=== PATIENT | female | born 1965 | race Caucasian/White ===

== ENCOUNTER → 2020-06-23 | Day surgery (SDC) | payer BC ==
[~2020-06-23] MED LIST: ALLOPURINOL100 MG PO; ATORVASTATIN CA20 MG PO; CETIRIZINE HCL10 M1 PO; MONTELUKAST SOD10 MG PO; PROPOFOL IV EMULSION 10 MG/ML 20 ML VIAL ONE; SERTRALINE HCL50 MG PO; SYMBICORT 16010.2 GM INH; VICTOZA 2-0.6 MG/0.1 SQ
[2020-06-23 09:25] VITALS: BP 110/68
== END | disposition home or self-care (01) ==
LOC: OR 06:01
PROVIDERS: ATTEND Internal Medicine Gastroenterology
DX: Z12.11 Encounter for screening for malignant neoplasm of colon (principal); K29.70 Gastritis, unspecified, without bleeding; K21.00 Gastro-esophageal reflux disease with esophagitis, without bleeding; K44.9 Diaphragmatic hernia without obstruction or gangrene; Z71.3 Dietary counseling and surveillance; E66.01 Morbid (severe) obesity due to excess calories; E11.22 Type 2 diabetes mellitus with diabetic chronic kidney disease; N18.9 Chronic kidney disease, unspecified; J45.909 Unspecified asthma, uncomplicated; M10.9 Gout, unspecified; F32.9 Major depressive disorder, single episode, unspecified; F41.9 Anxiety disorder, unspecified; Z88.2 Allergy status to sulfonamides; Z88.8 Allergy status to other drugs, medicaments and biological substances; Z01.810 Encounter for preprocedural cardiovascular examination; Z01.812 Encounter for preprocedural laboratory examination; Z20.822 Contact with and (suspected) exposure to COVID-19; Z68.41 Body mass index [BMI] 40.0-44.9, adult; Z87.891 Personal history of nicotine dependence
CPT/HCPCS: 36415; 43239; 45378; 81025; 82948; 93005; J2704; U0002

== ENCOUNTER 2020-07-07 18:19 | Emergency (ER) | payer BC ==
[~2020-07-07] VITALS: Ht 157.5 cm; Wt 120.2 kg
[~2020-07-07 18:19] MED LIST changes: -PROPOFOL IV EMULSION 10 MG/ML 20 ML VIAL ONE
[2020-07-07] MEDS ORDERED: SODIUM CHLORIDE 0.9% 1000ML 1,000 ML IV STA (18:50)
[2020-07-07] MEDS ORDERED: METOCLOPRAMIDE HCL 10 MG/2ML VIAL IV NR (19:00)
[2020-07-07] MEDS ORDERED: METHYLPREDNISOLONE SOD SUCC 125 MG/2ML VIAL IV ONE (19:00)
[2020-07-07] MEDS ORDERED: SODIUM CHLORIDE 0.9% 1000ML 1,000 ML ONE (19:04)
[2020-07-07] MEDS ORDERED: METHYLPREDNISOLONE SOD SUCC 125 MG/2ML VIAL ONE (19:04)
[2020-07-07] MEDS ORDERED: METOCLOPRAMIDE HCL 10 MG/2ML VIAL ONE (19:04)
[2020-07-07] MEDS ORDERED: ACETAMINOPHEN 325 MG TAB PO NR (19:15)
[2020-07-07] MEDS ORDERED: PREDNISONE 20 MG TAB PO NR (19:15)
[2020-07-07] MEDS ORDERED: METOCLOPRAMIDE HCL 10 MG/2ML VIAL IM NR (19:15)
[2020-07-07] MEDS ORDERED: ACETAMINOPHEN 325 MG TAB ONE (19:30)
[2020-07-07] MEDS ORDERED: MORPHINE SULFATE INJ 4 MG/ML INJ 1ML IM NR (20:00)
[2020-07-07] MEDS ORDERED: ONDANSETRON HCL 4 MG ORAL DISINTEGRATING TAB PO NR (20:00)
[2020-07-07] MEDS ORDERED: METHYLPREDNISOLONE SOD SUCC 125 MG/2ML VIAL IM STA (20:02)
[2020-07-07] MEDS ORDERED: FIORICET-COD 51 EACH PO (20:31)
[2020-07-07] MEDS ORDERED: MORPHINE SULFATE INJ 4 MG/ML INJ 1ML ONE (20:32)
[2020-07-07 20:53] VITALS: BP 162/83
== END 2020-07-07 20:53 | disposition home or self-care (01) ==
LOC: FSED 18:40
DX: G43.909 Migraine, unspecified, not intractable, without status migrainosus (principal)
CPT/HCPCS: 70450; 99283; J2270; J2765; J2930; J7030

== ENCOUNTER 2021-01-22 12:15 | Observation (INO) | payer BC ==
[~2021-01-22] VITALS: Ht 157.5 cm; Wt 119.7 kg
[~2021-01-22 12:15] MED LIST changes: +FIORICET-COD 51 EACH PO
[2021-01-22] MEDS ORDERED: FAMOTIDINE 20 MG/2 ML VIAL IV ONE ×2 (12:30→12:55)
[2021-01-22] MEDS ORDERED: ACETAMINOPHEN 325 MG TAB PO ONE (12:30)
[2021-01-22] MEDS ORDERED: NITROGLYCERIN 2% OINT 1 GM PKT TOP ONE (12:30)
[2021-01-22] MEDS ORDERED: PROTONIX20 MG PO (12:44)
[2021-01-22] MEDS ORDERED: ASPIRIN 81 MG CHEW TAB PO ONE (12:45)
[2021-01-22] MEDS: ONDANSETRON HCL INJ 2MG/ML 2ML 2 MG/ML VIAL IV PRN ×4 (12:50→19:00)
[2021-01-22] MEDS ORDERED: ONDANSETRON HCL INJ 2MG/ML 2ML 2 MG/ML VIAL ONE ×2 (12:54→15:30)
[2021-01-22] MEDS ORDERED: ACETAMINOPHEN 325 MG TAB ONE (12:54)
[2021-01-22] MEDS ORDERED: NITROGLYCERIN 2% OINT 1 GM PKT ONE (12:54)
[2021-01-22] MEDS ORDERED: SODIUM CHLORIDE 0.9% 1000ML 1,000 ML ONE (12:55)
[2021-01-22] MEDS ORDERED: KETOROLAC TROMETHAMINE 30 MG/ML VIAL ONE ×2 (12:55→15:30)
[2021-01-22] MEDS ORDERED: ASPIRIN 81 MG CHEW TAB ONE (12:57)
[2021-01-22] MEDS: FAMOTIDINE 20 MG TAB PO SCH ×2 (14:30→20:47)
[2021-01-22] MEDS ORDERED: ACETAMINOPHEN 325 MG TAB PO PRN (14:45)
[2021-01-22] MEDS ORDERED: HYDRALAZINE HCL 20 MG/ML VIAL IV PRN (14:45)
[2021-01-22] MEDS ORDERED: DIPHENHYDRAMINE HCL 25 MG CAP PO PRN (15:30)
[2021-01-22] MEDS ORDERED: KETOROLAC TROMETHAMINE 30 MG/ML VIAL IV STA (15:46)
[2021-01-22 17:29] VITALS: BP 128/88
[2021-01-22] MEDS ORDERED: DEXTROSE 50% SYRINGE 50 ML IV PRN (17:30)
[2021-01-22] MEDS ORDERED: TRAMADOL HCL 50 MG TAB PO PRN (17:45)
[2021-01-22 19:38] LABS: CREATINE KINASE 152 IU/L (29-168)
[2021-01-22 20:00] VITALS: BP 140/91
[2021-01-22] MEDS: INSULIN REGULAR, HUMAN 100 UNIT/1 ML SQ SCH (20:48)
[2021-01-22] MEDS ORDERED: ALLOPURINOL 100 MG TAB PO SCH (21:00)
[2021-01-22] MEDS ORDERED: ZOLPIDEM TARTRATE 10 MG TAB PO PRN (21:00)
[2021-01-22] MEDS ORDERED: SERTRALINE HCL 50 MG TAB PO SCH (21:00)
[2021-01-22] MEDS ORDERED: MONTELUKAST SODIUM 10 MG TAB PO SCH (21:00)
[2021-01-22] MEDS ORDERED: PANTOPRAZOLE SOD 40 MG TABEC PO SCH (21:00)
[2021-01-22] MEDS ORDERED: SIMVASTATIN 40 MG TAB PO SCH (21:00)
[2021-01-22] MEDS ORDERED: LORATADINE 10 MG TAB PO SCH (21:00)
[2021-01-22 23:07] VITALS: BP 140/91
[2021-01-23 00:03] VITALS: BP 141/93
[2021-01-23] MEDS: BUDESONIDE/FORMOTEROL 160/4.5MCG INHALER INH SCH ×2 (00:14→07:00)
[2021-01-23] MEDS: ONDANSETRON HCL INJ 2MG/ML 2ML 2 MG/ML VIAL IV PRN (03:43)
[2021-01-23] MEDS ORDERED: LOPERAMIDE HCL 2 MG CAP PO PRN (03:45)
[2021-01-23 04:00] VITALS: BP 131/92
[2021-01-23 06:31] LABS: ANION GAP 15.1 mmol/L (8-16); CALCIUM 8.4 mg/dL (8.4-10.2); CREATININE, SERUM 1.89 mg/dL (0.57-1.11); POTASSIUM 5.1 mmol/L (3.5-5.1)
[2021-01-23 06:33] LABS: CHOL/HDL RATIO 4.5 (3.0-3.6)
[2021-01-23 06:54] LABS: CREATINE KINASE 128 IU/L (29-168)
[2021-01-23] MEDS: INSULIN REGULAR, HUMAN 100 UNIT/1 ML SQ SCH ×2 (07:30→11:30)
[2021-01-23 07:54] VITALS: BP 157/74
[2021-01-23 07:56] VITALS: BP 157/74
[2021-01-23 08:02] VITALS: BP 157/74
[2021-01-23] MEDS ORDERED: ASPIRIN 81 MG ENTERIC COATED PO SCH (09:00)
[2021-01-23] MEDS: FAMOTIDINE 20 MG TAB PO SCH (09:11)
[2021-01-23 11:24] VITALS: BP 122/59
== END 2021-01-23 14:32 | disposition home or self-care (01) ==
LOC: FSED 12:24 → ERHOLD 13:36 → MED/SURG 17:45
PROVIDERS: ADMIT Internal Medicine; ATTEND Internal Medicine
DX: R07.9 Chest pain, unspecified (principal); E11.9 Type 2 diabetes mellitus without complications; F32.A Depression, unspecified; F41.9 Anxiety disorder, unspecified; E78.00 Pure hypercholesterolemia, unspecified; E66.01 Morbid (severe) obesity due to excess calories; Z68.42 Body mass index [BMI] 45.0-49.9, adult; M10.9 Gout, unspecified; Z88.2 Allergy status to sulfonamides; E11.22 Type 2 diabetes mellitus with diabetic chronic kidney disease; I12.9 Hypertensive chronic kidney disease with stage 1 through stage 4 chronic kidney disease, or unspecified chronic kidney disease; N18.9 Chronic kidney disease, unspecified; Z20.822 Contact with and (suspected) exposure to COVID-19; K52.9 Noninfective gastroenteritis and colitis, unspecified
CPT/HCPCS: 36415 ×2; 71046; 80048; 80053; 80061; 81003; 82550 ×2; 82553 ×2; 82948 ×2; 83036; 83880; 84443; 84484 ×2; 85025; 85379; 93005; 96372; 96374; 96375; 96376; 99284; G0378 ×2; J1885; J2405 ×2; J7030; S0164; U0002

== ENCOUNTER 2022-11-29 22:55 | Emergency (ER) | payer BC, OTHER ==
[~2022-11-29] VITALS: Ht 157.5 cm; Wt 114.8 kg
[~2022-11-29 22:55] MED LIST changes: +MUCINEX DM ER1 EAC1 PO; +PROTONIX20 MG PO
[2022-11-30] MEDS ORDERED: LACTULOSE20 GM/30 M PO (00:08)
[2022-11-30] MEDS ORDERED: ANUSOL-HC25 MG RC (00:09)
[2022-11-30] MEDS ORDERED: LACTULOSE SYRUP 20 GM/30 ML UDC PO ONE (00:15)
[2022-11-30 00:18] VITALS: BP 152/98; O2SAT 99
== END 2022-11-30 00:20 | disposition home or self-care (01) ==
LOC: ER 23:16
DX: K62.89 Other specified diseases of anus and rectum (principal); K59.00 Constipation, unspecified; K64.9 Unspecified hemorrhoids; E11.9 Type 2 diabetes mellitus without complications; E78.5 Hyperlipidemia, unspecified; F32.A Depression, unspecified; M10.9 Gout, unspecified
CPT/HCPCS: 74018; 99283